=== PATIENT | female | born 1960 | race Caucasian/White ===

== ENCOUNTER → 2016-11-18 | Outpatient (REF) | payer MEDICARE, MEDICAID ==
[~2016-11-18] MED LIST: /ESOM40CA OR; ASPI81TA21 PO; CALC600T7 PO; DEXI60CA PO; DOCU10CA PO; DRIS50002 PO; FLECTOR1.3 EXT; FLON0.054; GLUC850T OR; IBUP400T OR; LIDO5DIS36 TD; LISI-542 PO; LYRI150C OR; MAGN500T5 PO; METF500T PO; OXYBPOW TD; PRAV40TA2 PO; ROBA750T4 PO; Savella OR; TUMS500C OR; VICT18IN SC; VIT D 2000 OR; ZYRT10TA2 PO
[2016-11-18 12:21] LABS: ALBUMIN 3.6 GM/DL (3.2-5.2); ALBUMIN/GLOBULIN RATIO 1.29 (1.00-1.93); ALKALINE PHOSPHATASE 112 U/L (45-117); ALT/SGPT 21 U/L (12-78); ANION GAP 7 MEQ/L (8-16); AST/SGOT 14 U/L (15-37); BILIRUBIN,TOTAL 0.4 MG/DL (0.2-1.0); BLOOD UREA NITROGEN 16 MG/DL (7-18); CALCIUM LEVEL 8.7 MG/DL (8.5-10.1); CARBON DIOXIDE LEVEL 29 MEQ/L (21-32); CHLORIDE LEVEL 107 MEQ/L (98-107); CREATININE FOR GFR 0.84 MG/DL (0.55-1.02); GLOMERULAR FILTRATION RATE > 60.0 (>51); GLUCOSE, FASTING 163 MG/DL (70-105); POTASSIUM SERUM 3.9 MEQ/L (3.5-5.1); SODIUM LEVEL 143 MEQ/L (136-145); TOTAL PROTEIN 6.4 GM/DL (6.4-8.2)
== END ==
LOC: M SFHCPLAZ 08:23
PROVIDERS: ATTEND Nurse Practitioner Family
DX: E11.9 Type 2 diabetes mellitus without complications (principal); E55.9 Vitamin D deficiency, unspecified

== ENCOUNTER → 2017-01-06 | Outpatient (CLI) | payer MEDICARE ==
--- NOTE | 2017-01-06 14:52 | REPMRS ---
Patient History The patient states she had a clinical breast exam in 12/2016. Patient is postmenopausal. No known family history of cancer. Digital Woman Screen Mammo: January 06, 2017 - Exam #: [id number] Bilateral CC and MLO view(s) were taken. Technologist: Annie Jacobo, Technologist Prior study comparison: October 16, 2015, digital woman screen mammo performed at [facility]. October 31, 2014, digital mammo diagnostic bilateral, performed at [facility]. FINDINGS: There are scattered fibroglandular densities. There has been no change in the appearance of the mammogram from the prior studies. There is a mild amount of residual fibroglandular tissue which is fairly symmetric. There is no interval development of dominant mass, architectural distortion, or clustered microcalcification suggestive of malignancy. ASSESSMENT: BI-RADS/ACR category 1 mammogram. Negative. Recommendation Routine screening mammogram in 1 year (for women over age 40). This mammogram was interpreted with the aid of an FDA-approved computer-aided dectection system. Electronically Signed By: Kenneth Lindquist MD 01/06/17 [id number]
== END ==
LOC: M WHC 13:24
PROVIDERS: ATTEND Nurse Practitioner Family
DX: Z12.31 Encounter for screening mammogram for malignant neoplasm of breast (principal); Z78.0 Asymptomatic menopausal state; N39.41 Urge incontinence; Z12.12 Encounter for screening for malignant neoplasm of rectum
CPT/HCPCS: 81002; 82270; 87088; 87186; G0202; G0463

== ENCOUNTER → 2017-01-09 | Outpatient (CLI) | payer MEDICARE ==
--- NOTE | 2017-01-09 16:00 | REP ---
PELVIC ULTRASOUND: Real-time sonographic evaluation of the pelvis performed. Transabdominal and endovaginal technique is utilized. The bladder measures 8.5 x 7.5 x 5.8 cm. The uterus measures 7.9 x 3.8 x 4.8 cm. Endometrial thickness is 7 mm. This has increased since prior study. Prior thickness was 5 mm on the exam of 02/19/2011. The right ovary is visualized and appears unremarkable, 1.2 x 0.9 x 1.2 cm. Left ovary could not be identified. Blood flow is seen in the right ovary with duplex Doppler evaluation, with no torsion. RI 0.56. I see no evidence of adnexal mass or free fluid. IMPRESSION: Mildly thickened endometrium at 7 mm. This is elevated in a post menopausal patient. Consider endometrial sampling to exclude endometrial hyperplasia or neoplasm. Left ovary is not visualized. There is no evidence of mass or free fluid. No torsion right ovary.
== END ==
LOC: M WHC 13:14
PROVIDERS: ATTEND Nurse Practitioner Family
DX: R10.31 Right lower quadrant pain (principal)

== ENCOUNTER → 2017-03-04 | Day surgery (SDC) | payer MEDICARE ==
[~2017-03-04] VITALS: Ht 154.9 cm; Wt 93.0 kg
[~2017-03-04] MED LIST changes: +ACETAMINOPHEN 500 MG TAB PO PRN; +KETOROLAC 60 MG/2 ML VIAL (J1885) As Ordered ONE; +LIDOCAINE 2% INJ 100 MG/5 ML SDV (FOR ANES.) As Ordered ONE; +LR 1,000 ML IV ONE; +LR 1,000 ML IV SCH; +MIDAZOLAM INJ 2 MG/2 ML VIAL (J2250) As Ordered ONE; +NALOXONE INJ 0.4 MG/1 ML VIAL (J2310) As Ordered ONE; +NORCO, ANEXSIA 5/325MG TABLET (HYDROcodone/ACETAMINOPHEN) As Ordered ONE; +ONDANSETRON 4MG/2ML VIAL (J2405) As Ordered ONE; +PROPOFOL 200 MG/20 ML VIAL As Ordered ONE; +dexameTHASONE 4 MG/ML 1ML VIAL (J1100) As Ordered ONE; +fentaNYL 100 MCG/2 ML INJECTION (J3010) As Ordered ONE
[2017-03-04] MEDS: NORCO, ANEXSIA 5/325MG TABLET (HYDROcodone/ACETAMINOPHEN) PO PRN ×2 (13:07→13:38)
[2017-03-04] MEDS: fentaNYL 100 MCG/2 ML INJECTION (J3010) IV PRN ×4 (13:07→13:25)
[2017-03-04 14:35] VITALS: BP 131/64
--- NOTE | 2017-03-06 12:26 | RO ---
DATE OF PROCEDURE: 03/04/2017 PREOPERATIVE DIAGNOSIS: Postmenopausal bleeding. POSTOPERATIVE DIAGNOSIS: Postmenopausal bleeding. PROCEDURE: Hysteroscopy, dilation and curettage (D and C). SURGEON: Dr. Ted Liu SYRUP MIXER ASSISTANT: ANESTHESIA: Laryngeal mask airway (LMA). ESTIMATED BLOOD LOSS: Minimal. FINDINGS: Normal appearing atrophic endometrial cavity with stenotic cervical os. DESCRIPTION OF PROCEDURE: Patient taken to the operating room where LMA anesthesia was induced. She was prepped and draped in a sterile fashion in the dorsal lithotomy position. The bladder was emptied with a catheter. Speculum was placed in the vagina. The cervix was dilated with tapered dilators. Diagnostic hysteroscope using normal saline as a distention medium was placed through the internal os. Visualization of the endometrial cavity revealed the findings noted above. Hysteroscope was removed. Sharp curettage was performed. Endometrial curettings were sent for pathology. All instruments were removed. A small vaginal laceration created by the speculum was repaired with a figure-of-8 suture of #4-0 Vicryl. Good hemostasis was noted. Sponge, instrument, and needle counts were correct.
== END | disposition home or self-care (01) ==
LOC: M SDC 10:01
PROVIDERS: ATTEND Specialist
DX: N95.0 Postmenopausal bleeding (principal); E11.9 Type 2 diabetes mellitus without complications; M79.7 Fibromyalgia; K21.9 Gastro-esophageal reflux disease without esophagitis; G47.30 Sleep apnea, unspecified; Z79.4 Long term (current) use of insulin; Z79.82 Long term (current) use of aspirin; Z79.899 Other long term (current) drug therapy
CPT/HCPCS: 58558; 88305; J1100; J1885; J2250; J2310; J2405; J3010

== ENCOUNTER → 2017-03-06 | Outpatient (REF) | payer MEDICARE ==
[~2017-03-06] MED LIST changes: -ACETAMINOPHEN 500 MG TAB PO PRN; -KETOROLAC 60 MG/2 ML VIAL (J1885) As Ordered ONE; -LIDOCAINE 2% INJ 100 MG/5 ML SDV (FOR ANES.) As Ordered ONE; -LR 1,000 ML IV ONE; -LR 1,000 ML IV SCH; -MIDAZOLAM INJ 2 MG/2 ML VIAL (J2250) As Ordered ONE; -NALOXONE INJ 0.4 MG/1 ML VIAL (J2310) As Ordered ONE; -NORCO, ANEXSIA 5/325MG TABLET (HYDROcodone/ACETAMINOPHEN) As Ordered ONE; -ONDANSETRON 4MG/2ML VIAL (J2405) As Ordered ONE; -PROPOFOL 200 MG/20 ML VIAL As Ordered ONE; -dexameTHASONE 4 MG/ML 1ML VIAL (J1100) As Ordered ONE; -fentaNYL 100 MCG/2 ML INJECTION (J3010) As Ordered ONE
[2017-03-06 12:24] LABS: ALBUMIN 3.6 GM/DL (3.2-5.2); ALKALINE PHOSPHATASE 90 U/L (45-117); ALT/SGPT 23 U/L (12-78); ANION GAP 7 MEQ/L (8-16); AST/SGOT 11 U/L (15-37); BILIRUBIN,TOTAL 0.3 MG/DL (0.2-1.0); BLOOD UREA NITROGEN 21 MG/DL (7-18); CALCIUM LEVEL 9.1 MG/DL (8.5-10.1); CARBON DIOXIDE LEVEL 31 MEQ/L (21-32); CHLORIDE LEVEL 105 MEQ/L (98-107); CREATININE FOR GFR 0.84 MG/DL (0.55-1.02); GLOMERULAR FILTRATION RATE > 60.0 (>51); GLUCOSE, FASTING 117 MG/DL (70-105); MAGNESIUM LEVEL 1.8 MG/DL (1.8-2.4); POTASSIUM SERUM 4.6 MEQ/L (3.5-5.1); SODIUM LEVEL 143 MEQ/L (136-145); TOTAL PROTEIN 6.6 GM/DL (6.4-8.2)
== END ==
LOC: M SFHCPLAZ 09:46
PROVIDERS: ATTEND Nurse Practitioner Family
DX: E11.9 Type 2 diabetes mellitus without complications (principal); E83.40 Disorders of magnesium metabolism, unspecified; R80.9 Proteinuria, unspecified

== ENCOUNTER → 2017-04-22 | Outpatient (REF) | payer MEDICARE ==
[~2017-04-22] MED LIST changes: -DEXI60CA PO; +DEXI60CA2 PO; -LIDO5DIS36 TD; +LIDO5DIS41 TD; -METF500T PO; +METF500T13 PO
[2017-04-22 16:08] LABS: BASO % 0.4 % (0.0-1.0); EOS # 0.3 K/mm3 (0.0-0.50); EOS % 3.2 % (0.0-3.0); LARGE UNSTAINED CELL # 0.1 K/mm3 (0.0-0.4); LARGE UNSTAINED CELL % 1.5 % (0.0-4.0); LYMPH % 30.5 % (24.0-44.0); MEAN CORPUSCULAR HEMOGLOBIN 32.1 pg (27.0-33.0); MEAN CORPUSCULAR HGB CONC 34.1 g/dl (32.0-36.5); MEAN CORPUSCULAR VOLUME 94.2 fl (80.0-96.0); MONO # 0.5 K/mm3 (0.0-0.8); MONO % 5.5 % (0.0-5.0); NEUTROPHILS # 5.4 K/mm3 (1.8-7.7); NEUTROPHILS % 58.8 % (36.0-66.0); PLATELET COUNT, AUTOMATED 310 k/mm3 (150-450); RED CELL DISTRIBUTION WIDTH 14.1 % (11.5-14.5); WHITE BLOOD COUNT 9.2 K/mm3 (4.0-10.0)
[2017-04-22 17:53] LABS: ERYTHROCYTE SEDIMENTATION RATE 19 mm/hr (0-30)
== END ==
LOC: M SFHCPLAZ 14:32
PROVIDERS: ATTEND Nurse Practitioner Family
DX: M25.50 Pain in unspecified joint (principal)
CPT/HCPCS: 36415; 85025; 85652; 86038; 86140; 86431; G0463

== ENCOUNTER → 2017-07-28 | Outpatient (REF) | payer MEDICARE ==
[2017-07-28 12:27] LABS: BASO % 0.3 % (0.0-1.0); EOS # 0.3 10^3/uL (0.0-0.50); EOS % 3.7 % (0.0-3.0); IMMATURE GRANULOCYTE % 0.2 % (0-0); LYMPH % 33.8 % (24.0-44.0); MEAN CORPUSCULAR HEMOGLOBIN 31.6 pg (27.0-33.0); MEAN CORPUSCULAR HGB CONC 33.3 g/dl (32.0-36.5); MEAN CORPUSCULAR VOLUME 94.7 fl (80.0-96.0); MONO # 0.6 10^3/uL (0.0-0.8); MONO % 6.7 % (0.0-5.0); NEUTROPHILS # 4.9 10^3/uL (1.8-7.7); NEUTROPHILS % 55.3 % (36.0-66.0); PLATELET COUNT, AUTOMATED 309 10^3/uL (150-450); RED CELL DISTRIBUTION WIDTH 13.4 % (11.5-14.5); WHITE BLOOD COUNT 8.9 10^3/uL (4.0-10.0)
[2017-07-28 13:10] LABS: ALBUMIN 3.6 GM/DL (3.2-5.2); ALBUMIN/GLOBULIN RATIO 1.38 (1.00-1.93); ALKALINE PHOSPHATASE 96 U/L (45-117); ALT/SGPT 24 U/L (12-78); ANION GAP 8 MEQ/L (8-16); AST/SGOT 14 U/L (7-37); BILIRUBIN,TOTAL 0.3 MG/DL (0.2-1.0); BLOOD UREA NITROGEN 14 MG/DL (7-18); CALCIUM LEVEL 9.2 MG/DL (8.5-10.1); CARBON DIOXIDE LEVEL 28 MEQ/L (21-32); CHLORIDE LEVEL 105 MEQ/L (98-107); CHOLESTEROL LEVEL 179 MG/DL (<200); CREATININE FOR GFR 0.84 MG/DL (0.55-1.02); FREE T4 1.06 NG/DL (0.76-1.46); GLOMERULAR FILTRATION RATE > 60.0 (>51); GLUCOSE, FASTING 221 MG/DL (70-105); MAGNESIUM LEVEL 1.3 MG/DL (1.8-2.4); POTASSIUM SERUM 3.9 MEQ/L (3.5-5.1); SODIUM LEVEL 141 MEQ/L (136-145); TOTAL PROTEIN 6.2 GM/DL (6.4-8.2); TRIGLYCERIDES LEVEL 206 MG/DL (<150)
== END ==
LOC: M SFHCPLAZ 08:42
PROVIDERS: ATTEND Nurse Practitioner Family
DX: M25.50 Pain in unspecified joint (principal); E11.29 Type 2 diabetes mellitus with other diabetic kidney complication; F32.0 Major depressive disorder, single episode, mild; E78.2 Mixed hyperlipidemia; E83.40 Disorders of magnesium metabolism, unspecified; E55.9 Vitamin D deficiency, unspecified